=== PATIENT | female | born 1945 | race Caucasian/White ===

== ENCOUNTER 2017-05-27 10:57 | Outpatient (CLI) | payer OTHER, MEDICAID ==
[~2017-05-27 10:57] MED LIST: ALEN10TA6 PO; SIMV20TA6 PO
== END 2017-05-27 17:26 | disposition home or self-care (01) ==
LOC: SMA 10:57
PROVIDERS: ATTEND Family Medicine
DX: Z12.31 Encounter for screening mammogram for malignant neoplasm of breast (principal)
CPT/HCPCS: G0202

== ENCOUNTER 2018-06-28 10:41 | Outpatient (CLI) | payer OTHER, MEDICAID | END 2018-06-28 21:50 | disposition home or self-care (01) | LOC: SMA 10:41 | PROVIDERS: ATTEND Family Medicine | DX: Z12.31 Encounter for screening mammogram for malignant neoplasm of breast (principal) | CPT/HCPCS: 77067 ==

== ENCOUNTER 2019-07-03 09:41 | Outpatient (CLI) | payer OTHER, MEDICAID | END 2019-07-03 20:53 | disposition home or self-care (01) | LOC: SMA 09:41 | PROVIDERS: ATTEND Family Medicine | DX: Z12.31 Encounter for screening mammogram for malignant neoplasm of breast (principal) | CPT/HCPCS: 77067 ==

== ENCOUNTER 2020-07-16 09:53 | Outpatient (CLI) | payer OTHER, MEDICAID ==
[~2020-07-16 09:53] MED LIST changes: -ALEN10TA6 PO; +ALEN10TA7 PO
== END 2020-07-16 20:32 | disposition home or self-care (01) ==
LOC: SMA 09:53
PROVIDERS: ATTEND Family Medicine
DX: Z12.31 Encounter for screening mammogram for malignant neoplasm of breast (principal)
CPT/HCPCS: 77067

== ENCOUNTER 2021-08-11 13:00 | Outpatient (CLI) | payer OTHER, MEDICAID ==
[~2021-08-11 13:00] MED LIST changes: +ALEN10TA25 PO; -ALEN10TA7 PO; +SIMV-43 PO; -SIMV20TA6 PO
== END 2021-08-11 21:13 | disposition home or self-care (01) ==
LOC: SMA 13:00
PROVIDERS: ATTEND Family Medicine
DX: Z12.31 Encounter for screening mammogram for malignant neoplasm of breast (principal)
CPT/HCPCS: 77067

== ENCOUNTER 2022-08-24 10:59 | Outpatient (CLI) | payer OTHER, MEDICAID | END 2022-08-24 19:14 | disposition home or self-care (01) | LOC: SMA 10:59 | PROVIDERS: ATTEND Family Medicine | DX: Z12.31 Encounter for screening mammogram for malignant neoplasm of breast (principal) | CPT/HCPCS: 77067 ==